=== PATIENT | female | born 1945 | race Caucasian/White ===

== ENCOUNTER → 2018-06-05 | Outpatient (CLI) | payer OTHER, MEDICAID ==
--- NOTE | 2018-06-05 12:02 | CT ---
EXAM DESCRIPTION: Abdomen/Pelvis w/wo Contrast CLINICAL HISTORY: 73 years Female, ABDOMIN PAIN COMPARISON: CT abdomen and pelvis dated 05/16/2011. TECHNIQUE: Contiguous 3 mm axial images were obtained from the lung bases to the level of the proximal femora before and after the administration of intravenous and oral contrast. Sagittal and coronal reconstructions were reviewed. FINDINGS: THORAX: The imaged lower thorax demonstrates no gross abnormality. LIVER: The liver demonstrates normal size and density with no intrahepatic biliary ductal dilatation or focal masses. GALLBLADDER: Not well distended limiting detailed evaluation. PANCREAS: Appears normal with no cystic or solid lesions. SPLEEN: Normal ADRENAL GLANDS: Normal with no nodules or masses. KIDNEYS: Nonobstructive calculi measuring up to 5 mm are noted in both kidneys. No hydronephrosis or perinephric fluid collections. Bilateral simple cysts are identified. No focal masses are identified. The visualized ureters appear grossly unremarkable. STOMACH: The stomach is not well-distended limiting detailed evaluation. SMALL BOWEL: The small bowel loops demonstrate variable degrees of distention with no abnormal dilatation or other signs to suggest bowel obstruction. LARGE BOWEL: Large amount of fecal material is noted throughout the colon, consistent with constipation. There appendix is not definitively visualized. No evidence of free intraperitoneal air or fluid. RETROPERITONEUM: Aneurysmal dilatation of the infrarenal abdominal aorta, just above the bifurcation measuring up to 3.5 cm in greatest dimension is noted. The inferior vena cava is normal in size and caliber. No abnormally enlarged retroperitoneal lymph nodes are identified. URINARY BLADDER:The urinary bladder is well-distended with no gross abnormality. The uterus and ovaries are surgically absent. ADDITIONAL FINDINGS: None. BONES: Moderate degenerative changes are identified in the visualized bones.No evidence of osteophytic or osteoblastic lesions. IMPRESSION: 1. Nonobstructive nephrolithiasis of both kidneys. 2. Constipation. 3. 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 Follow-up CT in one year is recommended to document stability. This exam was performed according to our departmental dose-optimization program, which includes automated exposure control, adjustment of the mA and/or kV according to patient size and/or use of iterative reconstruction technique. Electronically signed by: Yesi Noland MD 06/05/2018 12:01 PM CDT
== END ==
LOC: CT 08:30
PROVIDERS: ATTEND General Practice
DX: Z00.00 Encounter for general adult medical examination without abnormal findings (principal); N20.0 Calculus of kidney; K59.00 Constipation, unspecified; I71.4 Abdominal aortic aneurysm, without rupture; R10.9 Unspecified abdominal pain; E87.1 Hypo-osmolality and hyponatremia; E87.5 Hyperkalemia

== ENCOUNTER 2018-09-19 13:26 | Inpatient (IN) | payer OTHER, MEDICAID ==
[2018-09-19] MEDS ORDERED: ALBUTEROL SULFATE INHALATION 5 MG/ML 20 ML BTTL NEB ONE ×2 (13:44→19:55)
[2018-09-19] MEDS ORDERED: methylPREDNISolone SODIUM SUC 125 MG/2 ML VIAL ONE (13:45)
[2018-09-19] MEDS ORDERED: SODIUM CHLORIDE 0.9% 50 ML VIAL ONE ×2 (13:46→19:55)
[2018-09-19] MEDS ORDERED: methylPREDNISolone SODIUM SUC 125 MG/2 ML VIAL IV ONE (13:50)
[2018-09-19] MEDS ORDERED: SODIUM CHL 0.9% 50ML VIAL 3 ML, ALBUTEROL SULFATE NEBS 15 MG NEB ONE ×4 (13:50→19:42)
--- NOTE | 2018-09-19 13:55 | ED.PDOC ---
History of Present Illness - General Chief Complaint: Respiratory Problem Stated Complaint: Difficulty breathing, fever Time Seen by Provider: 09/19/18 13:40 Source: patient Exam Limitations: no limitations - History of Present Illness Comments: PT PRESENTED TO ED C/O COUGH AND SOB X 3-4 DAYS BUT MUCH WORSE TODAY. Cough Quality/Degree: sputum - UNKNOWN COLOR Improving Factors: nothing Worsening Factors: nothing Associated Symptoms: fever/chills Allergies/Adverse Reactions: Allergies Ketorolac Tromethamine [From Toradol] Allergy (Verified 09/19/18 14:14) Vomitting Also makes patient delusional Home Medications: Ambulatory Orders Aspirin 325 mg PO DAILY 09/19/18 Atorvastatin Calcium 40 mg PO BEDTIME 09/19/18 Calcium 1,200 mg PO BEDTIME 09/19/18 Calcium 600 mg PO DAILY 09/19/18 Levothyroxine Sodium 88 mcg PO DAILY 09/19/18 Loratadine [Claritin] 10 mg PO DAILY PRN 09/19/18 Melatonin 5 mg PO BEDTIME 09/19/18 Montelukast [Singulair] 10 mg PO DAILY 09/19/18 Nifedipine [Nifedipine ER] 60 mg PO DAILY 09/19/18 Propranolol HCl [Inderal LA] 120 mg PO DAILY 09/19/18 Review of Systems - Review of Systems Constitutional: States: fever. Denies: weakness EENTM: States: no symptoms reported Respiratory: States: cough, short of breath, wheezing Cardiology: Denies: chest pain, palpitations Gastrointestinal/Abdominal: Denies: nausea, vomiting Genitourinary: States: no symptoms reported Musculoskeletal: Denies: back pain, muscle pain, neck pain Skin: States: no symptoms reported Neurological: States: no symptoms reported Endocrine: States: no symptoms reported Hematologic/Lymphatic: States: no symptoms reported Past Medical History (General) - Patient Medical History Hx of COPD: Yes Hx Hypertension: Yes - Social History Hx Tobacco Use: Yes Family Medical History - Family History Mother Living Status: Hx Family Stroke: Yes Hx Cardiac Disease: Yes Hx Family Diabetes: Yes Physical Exam - Physical Exam General Appearance: Other - MOD TO SEVERE RESP DISTRESS Eye Exam: bilateral normal ENT Exam: normal ENT inspection, hearing grossly normal Neck: non-tender, full range of motion, supple Respiratory: respiratory distress - SATS 40% RA (HYPOXIC), other - MARKEDLY DIMINISHED THROUGHOUT, L>R LLL WORSE. PROLONGED EXP PHASE WITH POOR AIR EXCHANGE NAD DIFFUSE WHEEZING. Cardiovascular/Chest: no murmur, tachycardia Gastrointestinal/Abdominal: non tender, soft, no organomegaly Extremity: normal range of motion, non-tender, other - NAIL BEDS SLIGHTLY CYANOTIC Neurologic: alert, normal mood/affect Skin Exam: warm/dry, cyanosis Lymphatic: no adenopathy Progress - Progress Progress: 09/19/18 13:57 STARTED ON NON REBREATHER SATS RECOVERD TO 90'S STAT XRAY, LAB, CONTINUOUS NEB AND ABG. 09/19/18 14:33 DOING BETTER, SATS 92% ON CONTINUOUS NEB. STILL TIGHT WITH EXP WHEEZES. 09/19/18 1450 PT'S CONDITION REMAINS STABLE BUT GAURDED. D/W DALIA MERIDA, WILL ADMIT - EKG/XRAY/CT EKG: Sinus - RATE 97, LAD, , nonspecific ST T wave Chg - NAIP, NO OLD FOR COMPARISON XRAY: chest - LLL IFILTRATE Departure - Departure Clinical Impression: Hypoxemia Pneumonia Qualifiers: Pneumonia type: due to unspecified organism Laterality: left Lung location: lower lobe of lung Qualified Code(s): J18.1 - Lobar pneumonia, unspecified organism COPD (chronic obstructive pulmonary disease) Qualifiers: COPD type: COPD with acute lower respiratory infection Qualified Code(s): J44.0 - Chronic obstructive pulmonary disease with acute lower respiratory infection Hypertension Qualifiers: Hypertension type: essential hypertension Qualified Code(s): I10 - Essential (primary) hypertension ICD-10 Supporting Text: RESPIRATORY DISTRESS RESOLVED Time of Disposition: 15:29 Disposition: Admit Patient Condition: Fair Departure Forms: ED Discharge - Pt. Copy, Patient Portal Self Enrollment Home Medications: Ambulatory Orders Aspirin 325 mg PO DAILY 09/19/18 Atorvastatin Calcium 40 mg PO BEDTIME 09/19/18 Calcium 1,200 mg PO BEDTIME 09/19/18 Calcium 600 mg PO DAILY 09/19/18 Levothyroxine Sodium 88 mcg PO DAILY 09/19/18 Loratadine [Claritin] 10 mg PO DAILY PRN 09/19/18 Melatonin 5 mg PO BEDTIME 09/19/18 Montelukast [Singulair] 10 mg PO DAILY 09/19/18 Nifedipine [Nifedipine ER] 60 mg PO DAILY 09/19/18 Propranolol HCl [Inderal LA] 120 mg PO DAILY 09/19/18 Critical Care Note - Critical Care Note Total Time (mins): 45 Comments: EVENT: PNEUMONIA WITH HYPOXEMIA AND BRONCHOSPASM FINDINGS: LLL INFILTRATE, SATS 50%, RESP DISTRESS INTERVENTIONS: O2 SUPPORT, CONTINUOUS NEBULIZER X 2, ABX, STEROIDS SYSTEM AT RISK: RESP, CARDIO-VASCULAR Decision To Admit - Decistion To Admit Decision to Admit Reason: Admit from ER Decision to Admit Date: 09/19/18 Decision to Admit Time: 14:37
--- NOTE | 2018-09-19 14:17 | RAD ---
EXAM DESCRIPTION: Chest,1 View CLINICAL HISTORY: SOB, COUGH, FEVER COMPARISON: 19 May 2011 TECHNIQUE: AP portable chest FINDINGS: Bilateral interstitial lung disease is observed more pronounced on the left. The heart is within range of normal. No pleural fluid is seen. IMPRESSION: Interstitial infiltrates are observed more pronounced on the left. This may represent pneumonia Electronically signed by: Cj Bcaon MD 09/19/2018 2:15 PM MRI SPECIALIST
[2018-09-19] MEDS ORDERED: ALBUTEROL SULFATE NEB ONE ×2 (14:30)
[2018-09-19] MEDS ORDERED: SODIUM CHLORIDE 0.9% NEB ONE ×2 (14:30)
[2018-09-19] MEDS ORDERED: AZITHROMYCIN IV 500 MG in SODIUM CHLORIDE 0.9% 250ML 250 ML IVPB ONE (14:35)
[2018-09-19] MEDS ORDERED: cefTRIAXone SODIUM 1 GM in SODIUM CHL 0.9% 50ML MIN-BAG+ 50 ML IVPB ONE (14:35)
[2018-09-19] MEDS ORDERED: cefTRIAXone SODIUM 1 GM VIAL ONE (14:58)
[2018-09-19] MEDS ORDERED: AZITHROMYCIN IV 500 MG VIAL IVPB ONE (14:58)
[2018-09-19] MEDS ORDERED: SODIUM CHLORIDE 0.9% 250ML 250 ML ONE (14:58)
[2018-09-19] MEDS ORDERED: SODIUM CHL 0.9% 50ML MIN-BAG+ 50 ML IVPB ONE (14:58)
--- NOTE | 2018-09-19 15:45 | HP ---
SUPERVISING PHYSICIAN: Jeremy Nelson MD CHIEF COMPLAINT: Difficulty breathing, fever. HISTORY OF PRESENT ILLNESS: Ms. Henley is a 73 year-old female patient who reported to the Emergency Room today complaining of increasing cough and worsening shortness of breath. She notes that in the earlier part of the week she started having some shortness of breath and feeling bad but this progressively worsened over the last 3 days and today it was much worse where she was even short of breath just at rest. On presentation to the Emergency Room, the was noted to be severely hypoxic and in mild distress with initial SP02 showing to be in the 50s on room air with labored respirations at 44. She was noted to be febrile at 102.1, blood pressure showing hypertension at 179/114 with heart rate of 97. She was given continuous Duoneb treatments x2 and was able to increase to maintain 02 saturation of 90% with a Venti mask of 50%. Her laboratory studies showed she had a normal white count of 10,600 with a left shift, hemoglobin 13.6, hematocrit 40.6, platelet count 258,000. Blood gasses showed a respiratory acidosis with a pH of 7.3, PO2 of 78, PCO2 of 59, bicarb 27.9 with 02 saturation on Venti mask at 50% showing it to be 93%. Initial chemistries showed a low sodium of 132, BUN 27, creatinine1.0, glucose 158, lactic acid normal at 1.2, calcium 9.3, magnesium low at 1.6. Liver functions showed to be within normal limits. BNP elevated at 629 with troponin of 0.04. The patient was not complaining of any chest pain during the entire hospitalization in the Emergency Room prior to admission. She was noted to be a chronic smoker up to a pack a day since age of 20. Her chest x-ray per radiology interpretation showed interstitial infiltrates being more prominent on the left which is concerning for pneumonia. The patient was kept in the Emergency Room and aggressively managed until she was noted to be stable but guarded. After further discussion with Dr. Claudio, Emergency Room physician, felt the patient was stable enough to be admitted to the medical/surgical floor here for ongoing treatment of left lower lobe pneumonia and hypoxemia with some mild respiratory distress but no failure. She was able to maintain 02 saturations in the 90s on a continuous nebulizer with no obvious distress. She is now going to be admitted to the medical/surgical floor for further evaluation and treatment. PAST MEDICAL HISTORY: 1. Hypothyroidism. 2. Hypertension. 3. Chronic obstructive pulmonary disease. 4. History of transient ischemic attacks. 5. Left patellar fracture in 2018. PAST SURGICAL HISTORY: 1. Thyroidectomy. 2. Multiple cervical spine surgeries. 3. Appendectomy. 4. Partial colectomy for concerns for colon cancer requiring a colostomy which was reversed. 5. Tonsillectomy and adenoidectomy. CURRENT MEDICATIONS: 1. Calcium 1200 mg t.i.d. 2. Nifedipine extended release 30 mg daily. 3. Melatonin 5 mg at bedtime. 4. Aspirin 325 mg daily. 5. Atorvastatin 40 mg daily. 6. Singulair 10 mg daily. 7. Levothyroxine 88 mcg daily. 8. Inderal 120 mg daily. ALLERGIES: TORADOL FAMILY HISTORY: Father at age 65 from complications of chronic obstructive pulmonary disease. Mother at 91 years of age. She has one brother that is healthy. She has two children, a son as a child from complications of spina bifida. She has one daughter who has blood pressure problems and another son that she does not keep up with. SOCIAL HISTORY: The patient lives in [place], [place]. Her primary care physician is Dr. Quinn. She is a retired grocery store worked. She has never drank alcohol. She does smoke anywhere from half pack to a pack a day and has since age 20. She denies any illicit drug use. REVIEW OF SYSTEMS: CONSTITUTIONAL: Positive for chills, fevers and general malaise. . HEENT: Negative for nasal congestion, earache or sore throat. RESPIRATORY: Positive for increasing cough with purulent sputum, increasing shortness of breath and extensive wheezing. . CARDIOVASCULAR: Negative for chest pain. palpitations or syncopal episodes. GASTROINTESTINAL: Negative for nausea, vomiting, diarrhea or constipation, GENITOURINARY: Negative for dysuria, hematuria, polyuria or other urinary symptoms. MUSCULOSKELETAL: Negative for back pain, muscle pains or neck pain. NEUROLOGICAL: Negative for ataxia, seizures, syncopal episodes. PHYSICAL EXAMINATION: VITAL SIGNS: Temperature on admission was febrile at 102.1, heart rate 97, blood pressure initially 179/114. Respirations 40 that were labored with 02 saturations on room air at 50%. After continuous nebulizer treatments x2 she was able to maintain 02 saturation on the Venti at 50% showing 91 to 92% on SP02. Blood pressure stabilized at 132/66 after she was given multiple breathing treatments. Weight 53.4 kg. GENERAL: At time of admission to the medical/surgical floor, the patient was resting comfortably and appeared to be in no acute distress with Venti mask in place. HEENT: Tympanic membranes clear bilaterally. Oropharynx pink and moist without any lesions. NECK: Supple, non-tender ,full range of motion. No jugular venous distention. . CHEST: Breath sounds are markedly decreased throughout, more so on the left than the right and more prominent in the left lower lobe, posterior aspect with a prolonged expiratory phase resulting in diffuse wheezing showing slow improvement continuous nebulizer treatments. CARDIOVASCULAR: Regular rate and rhythm without appreciable murmurs, rubs, or gallops. ABDOMEN: Soft, nontender, positive bowel sounds. EXTREMITIES: No cyanosis, clubbing, or edema. NEUROLOGIC: Cranial nerves II through XII are grossly intact. Facial features are symmetrical. She is alert and oriented x3. Extraocular movements within normal limits. SKIN: Pale, warm and dry. No lesions or rashes noted. LYMPHATIC SYSTEM: Without any notable lymphadenopathy. LABORATORY: White count 10,600 with hemoglobin 13.6, hematocrit 40.6, platelet count 158,000, differential did show a left shift. Her blood gas analysis showed respiratory acidosis with a pH of 7.3, PCO2 of 59, PO2 of 78, bicarb 27.9 with 02 saturation on Venti at 50% at 93% on SPO2. Oxyhemoglobin 91 with carboxyhemoglobin of 1.2%. Chemistries showed a sodium initially of 132, potassium 3.8, BUN 27, creatinine 1,glucose 158, lactic normal at 1.2, magnesium 1.6. Liver functions all within normal limits. BNP elevated at 629 with troponin of 0.04. MICROBIOLOGY: Influenza swab both negative for A and B. Sputum culture pending. Blood cultures pending. RADIOLOGY: Chest x-ray, single view in the Emergency Room per radiology interpretation showed interstitial infiltrates more pronounced on the left which could represent pneumonia. ASSESSMENT: 1. Acute exacerbation of chronic obstructive pulmonary disease with left lower lobe pneumonia. 2. Respiratory acidosis secondary to moderate acute respiratory distress requiring continuous nebs and high flow oxygen. 3. Chronic nicotine addiction in a chronic smoker. 4. Febrile illness probably due to developing pneumonia. 5. Hypoxemia, hypoxia as noted on admission requiring aggressive management. 6. Electrolyte imbalance to include hyponatremia probably due to underlying developing pneumonia with low magnesium. 8. Elevated BNP without any formal history of congestive heart failure probably due to ongoing respiratory failure. 9. History of hypothyroidism on supplementation. 10. History of hypertension with hypertensive urgency on admission due to acute respiratory distress. 11. History of previous transient ischemic attacks. PLAN: The patient is going to be admitted to the medical/surgical floor for ongoing treatment of community acquired pneumonia. She will be started on antibiotics including Rocephin and azithromycin. She will be on aggressive pulmonary hygiene, toiletry and will initially try to use the Venti mask and taper to nasal cannula, however, if the patient shows to be clinically worsening, certainly we will go to noninvasive to include BiPAP. Will utilize continuous albuterol nebulizer treatments until she is showing to be stable and then we will go to q.i.d. Duoneb treatments. Will await sputum cultures for assistance to further target antibiotic therapy. She will have DVT prophylaxis with Lovenox. Will plan to repeat labs and x-ray in the morning. Anticipate length of stay to be probably 2 to 3 days. Until she can transition to outpatient management, we will continue to monitor and treat as needed. #[id number] [facility]
[2018-09-19] MEDS ORDERED: ONDANSETRON INJ 4 MG/2 ML VIAL IV PRN (18:33)
[2018-09-19] MEDS ORDERED: ALBUTEROL SULFATE 2.5 MG/3 ML VIAL NEB PRN (18:33)
[2018-09-19] MEDS ORDERED: NON-FORMULARY MEDICATION 1 EA MIS (Melatonin [Melatonin] 5 MG) PO PRN (18:40)
[2018-09-19] MEDS: IV SET AND CAP CHANGE INJ INJ SCH (19:00)
[2018-09-19] MEDS: KCL 20 MEQ/NS 1,000 ML IVS PRN (19:00)
[2018-09-19] MEDS ORDERED: ATORVASTATIN 20 MG TAB PO ONE ×2 (19:22→21:00)
[2018-09-19] MEDS ORDERED: MELATONIN 3 MG TAB PO PRN (19:36)
[2018-09-19] MEDS ORDERED: MAGNESIUM SULFATE PREMIX 2GM 2 GM in PREMIX BAG 1 BAG IVPB ONE (19:42)
[2018-09-19] MEDS ORDERED: CALCIUM CARBONATE (ANTACID) 500 MG CHEWABLE TAB PO ONE (19:49)
[2018-09-19] MEDS: IPRATROPIUM/ALBUTEROL 3 ML VIAL INH SCH (19:50)
[2018-09-19] MEDS ORDERED: MAGNESIUM SULFATE PREMIX 2GM 50 ML IVPB ONE (19:55)
[2018-09-19] MEDS ORDERED: CALCIUM 1000 MG PO SCH (21:00)
[2018-09-19] MEDS: ENOXAPARIN SODIUM 40 MG/0.4 ML SYG SUBCU SCH (21:00)
[2018-09-19] MEDS: SODIUM CHLORIDE 0.9% (FLUSH) 10 ML SYG IV PRN (21:00)
[2018-09-19] MEDS ORDERED: NON-FORMULARY MEDICATION 1 EA MIS (Atorvastatin Calcium [Atorvastatin Calcium] 40 MG) PO SCH (21:00)
[2018-09-19] MEDS ORDERED: CALCIUM 1200 MG PO SCH (21:00)
[2018-09-19] MEDS: methylPREDNISolone SODIUM SUC 125 MG/2 ML VIAL IV SCH (21:00)
[2018-09-20] MEDS: methylPREDNISolone SODIUM SUC 125 MG/2 ML VIAL IV SCH ×4 (00:38→17:35)
[2018-09-20] MEDS: SODIUM CHLORIDE 0.9% (FLUSH) 10 ML SYG IV PRN ×3 (00:38→06:01)
[2018-09-20] MEDS: PANTOPRAZOLE SODIUM IV 40 MG VIAL IV SCH (06:00)
[2018-09-20] MEDS: KCL 20 MEQ/NS 1,000 ML IVS PRN (08:09)
--- NOTE | 2018-09-20 08:11 | RAD ---
PROCEDURE: XR CHEST 1 VIEW HISTORY: Pneumonia COMPARISON: 09/19/2018 TECHNIQUE: Single projection of the chest was done. FINDINGS: Chronic prominence of the interstitium in the bilateral lung johnson is again noted. There is presence of mild bibasilar infiltrate/atelectasis . There are no pneumothoraces or pleural effusions. The cardiomediastinal silhouette is stable. IMPRESSION: There is presence of mild bibasilar infiltrate/atelectasis, not significantly changed . Electronically signed by: Torsten Zuñiga MD 09/20/2018 8:10 AM [facility] Workstation: [id number]
[2018-09-20] MEDS ORDERED: IPRATROPIUM/ALBUTEROL 3 ML VIAL NEB ONE (08:17)
[2018-09-20] MEDS ORDERED: NIFEdipine XL 30 MG TAB PO SCH (09:00)
[2018-09-20] MEDS ORDERED: PROPRANOLOL HCL 120 MG PO SCH (09:00)
[2018-09-20] MEDS ORDERED: CALCIUM CARBONATE-VITAMIN D 500 MG TAB PO SCH ×2 (09:00→09:30)
[2018-09-20] MEDS ORDERED: SODIUM CHL 0.9% 50ML MIN-BAG+ 50 ML IVPB ONE (09:07)
[2018-09-20] MEDS ORDERED: cefTRIAXone SODIUM 1 GM VIAL ONE (09:07)
[2018-09-20] MEDS: IPRATROPIUM/ALBUTEROL 3 ML VIAL NEB SCH ×4 (09:19→20:18)
[2018-09-20] MEDS: cefTRIAXone SODIUM 1 GM in SODIUM CHL 0.9% 50ML MIN-BAG+ 50 ML IVPB SCH (09:23)
[2018-09-20] MEDS: LEVOTHYROXINE SODIUM 0.088 MG TAB PO SCH (09:23)
[2018-09-20] MEDS: MONTELUKAST 10 MG TAB PO SCH (09:23)
[2018-09-20] MEDS: ASPIRIN TABLET 325 MG TAB PO SCH (09:23)
[2018-09-20] MEDS: IPRATROPIUM/ALBUTEROL 3 ML VIAL INH SCH (09:34)
[2018-09-20] MEDS ORDERED: NIFEdipine XL 30 MG TAB PO ONE (11:36)
[2018-09-20] MEDS ORDERED: SODIUM CHLORIDE 0.9% 250ML 250 ML ONE (17:03)
[2018-09-20] MEDS ORDERED: SODIUM CHL 0.9% 50ML VIAL 12 ML, ALBUTEROL SULFATE NEBS 7.5 MG NEB ONE ×2 (17:03)
[2018-09-20] MEDS ORDERED: AZITHROMYCIN IV 500 MG VIAL IVPB ONE (17:04)
[2018-09-20] MEDS: BUDESONIDE NEBS 0.5 MG/2 ML VIAL NEB SCH ×2 (17:21→20:17)
[2018-09-20] MEDS: NICOTINE PATCH 14 MG TD SCH (17:31)
[2018-09-20] MEDS: AZITHROMYCIN IV 500 MG in SODIUM CHLORIDE 0.9% 250ML 250 ML IVPB SCH (17:31)
[2018-09-20] MEDS: CALCIUM CARBONATE-VITAMIN D 500 MG TAB PO SCH ×2 (17:32→20:38)
[2018-09-20] MEDS ORDERED: RACEPINEPHRINE 2.25% 0.5 ML UD NEB ONE (17:54)
[2018-09-20] MEDS: SODIUM CHLORIDE 0.45% 1000ML 1,000 ML IVS PRN (18:49)
--- NOTE | 2018-09-20 19:26 | RAD ---
EXAM DESCRIPTION: AP view of the chest CLINICAL HISTORY:73 years Female, sob Comparison: September 20, 2018 7:26 AM FINDINGS: Diffuse prominence of the pulmonary interstitium is unchanged likely related to chronic lung disease. Increased opacity in the left lung base now silhouettes the hemidiaphragm. No definite pleural abnormalities. Cardiac silhouette is stable. IMPRESSION: Increased alveolar opacities in the left lung base. Electronically signed by: Sridhar Hernandez DO 09/20/2018 7:25 PM [facility]
[2018-09-20] MEDS ORDERED: FUROSEMIDE INJ 40 MG/4 ML VIAL IV ONE (19:32)
[2018-09-20] MEDS: ENOXAPARIN SODIUM 40 MG/0.4 ML SYG SUBCU SCH (20:37)
[2018-09-20] MEDS: ATORVASTATIN 20 MG TAB PO SCH (20:37)
--- NOTE | 2018-09-20 22:39 | PN ---
DATE: 09/20/18 SUPERVISING PHYSICIAN: Jeremy Nelson M.D. SUBJECTIVE: This morning the patient felt that she was improved a little bit. She was showing to be in much less distress and comfortable, but continues to require high flow oxygen with a Venti mask at 50% to maintain minimal O2 saturations. She has had no chest pains. She has remained afebrile. OBJECTIVE: VITAL SIGNS: Temperature 97.9, pulse 76, blood pressure 151/72, respirations 20, satting 95% on a Venti mask at 10 liters for 50% FiO2. I's and O's show a positive balance of 147 with 647 in, 500 out. Weight is 54.3 kg. GENERAL: The patient is much more alert today. She is actually very verbal and is verbalizing she would like to go home. CHEST: Lung sounds continue to be diminished throughout although improved certainly from admission with continued expiratory wheezes and a fairly long expiratory phase with her showing to be hypoxic on room air continued and remaining on 50% FiO2 via Venti mask with slow titration. HEART: Regular rate and rhythm. ABDOMEN: Soft, non-tender. Positive bowel sounds. EXTREMITIES: Without any clubbing, cyanosis or edema. NEUROLOGIC: She is alert and oriented times three. LABORATORY: White count 15,700, hemoglobin 12.5, hematocrit 38.2, platelet count 205,000. Differential shows a continued left shift but no bands. Chemistries show normal electrolytes with potassium 4.7, BUN 30, creatinine 0.87. Magnesium now is up to 2.3, calcium at 9.0. MICROBIOLOGY: Sputum culture is pending. Blood cultures remain negative at 24 hours. RADIOLOGY: Repeat chest x-ray this morning per radiology interpretation shows the presence of mild basilar infiltrate/atelectasis not significantly changed. ASSESSMENT: 1. Acute exacerbation of chronic obstructive pulmonary disease with a developing left lower lobe pneumonia probably community acquired requiring aggressive management with high flow O2 resulting in dependency on FiO2 at 50% with slow titration and the patient showing to be continuing short of breath on room air. 2. Respiratory acidosis partially compensated due to moderate acute respiratory failure with increased CO2 levels but improving with continuous nebs and high flow oxygen. 3. Chronic nicotine addiction in a chronic smoker. Again encouraged to continue with smoking cessation. 4. Febrile illness probably due to developing pneumonia. 5. Hypoxemia and hypoxia with hypercapnia noted on admission due to #1. 6. Electrolyte imbalance to include hyponatremia and hypomagnesemia, resolving back to baseline with fluid replacement. 7. History of hypothyroidism on supplementation. 8. History of hypertension with hypertensive urgency initially on admission probably due to acute respiratory distress and the patient not able to take home medications prior to admission. 10. History of previous transient ischemic attacks with no reported residual effects. PLAN: The patient continues to require aggressive management. We continue with DuoNeb treatments and continuous DuoNeb treatments as needed. Consideration for BiPAP should the patient show deterioration, although I am not sure she would tolerate the use of it. She continues on a Venti mask and aggressive pulmonary hygiene. Will restart her home medications as updated list was verified. Will go ahead and continue with IV fluids and monitor I's and O's closely. Will plan to repeat labs and x-rays in the morning. Anticipate at least another 1 to 2 days, possibly more of hospitalization need as the patient is fairly advanced in age with advanced COPD and showing slow clinical improvement. Her condition certainly is guarded but she seems to be stable at this point. Until we can transition her to outpatient management will continue to monitor and treat as needed. #[id number] [facility]
[2018-09-21] MEDS: methylPREDNISolone SODIUM SUC 125 MG/2 ML VIAL IV SCH ×4 (00:03→18:35)
[2018-09-21] MEDS: SODIUM CHLORIDE 0.45% 1000ML 1,000 ML IVS PRN ×2 (05:18→22:11)
[2018-09-21] MEDS ORDERED: SODIUM CHL 0.9% 50ML MIN-BAG+ 50 ML IVPB ONE (05:25)
[2018-09-21] MEDS ORDERED: cefTRIAXone SODIUM 1 GM VIAL ONE (05:26)
[2018-09-21] MEDS: LEVOTHYROXINE SODIUM 0.088 MG TAB PO SCH (06:08)
[2018-09-21] MEDS: PANTOPRAZOLE SODIUM IV 40 MG VIAL IV SCH (06:08)
[2018-09-21] MEDS ORDERED: BUDESONIDE NEBS 0.25 MG/2 ML INH ONE (07:45)
[2018-09-21] MEDS: IPRATROPIUM/ALBUTEROL 3 ML VIAL NEB SCH ×4 (08:06→19:50)
[2018-09-21] MEDS: BUDESONIDE NEBS 0.5 MG/2 ML VIAL NEB SCH ×2 (08:06→19:50)
[2018-09-21] MEDS: ASPIRIN TABLET 325 MG TAB PO SCH (08:44)
[2018-09-21] MEDS: NICOTINE PATCH 14 MG TD SCH (08:45)
[2018-09-21] MEDS: NIFEDIPINE 60 MG PO SCH (08:45)
[2018-09-21] MEDS: CALCIUM CARBONATE-VITAMIN D 500 MG TAB PO SCH ×3 (08:45→20:57)
[2018-09-21] MEDS: MONTELUKAST 10 MG TAB PO SCH (08:45)
[2018-09-21] MEDS: cefTRIAXone SODIUM 1 GM in SODIUM CHL 0.9% 50ML MIN-BAG+ 50 ML IVPB SCH (08:53)
[2018-09-21] MEDS ORDERED: FUROSEMIDE INJ 40 MG/4 ML VIAL IV ONE (10:41)
[2018-09-21] MEDS ORDERED: SODIUM CHLORIDE 0.9% 250ML 250 ML ONE (16:26)
[2018-09-21] MEDS ORDERED: AZITHROMYCIN IV 500 MG VIAL IVPB ONE (16:27)
[2018-09-21] MEDS: AZITHROMYCIN IV 500 MG in SODIUM CHLORIDE 0.9% 250ML 250 ML IVPB SCH (16:32)
[2018-09-21] MEDS: ATORVASTATIN 20 MG TAB PO SCH (20:53)
[2018-09-21] MEDS: ENOXAPARIN SODIUM 40 MG/0.4 ML SYG SUBCU SCH (20:56)
--- NOTE | 2018-09-21 21:06 | PN ---
DATE: 09/21/18 SUPERVISING PHYSICIAN: Jeremy Nelson M.D. SUBJECTIVE: The patient is still very fragile in regards to her COPD exacerbation. She had been doing fine yesterday and around 6:00 the nurses called me that the patient had acutely deteriorated and was in some mild respiratory distress, possibly verging on failure. After examining the patient and laboratory studies that showed she did have respiratory acidosis and was once again with prominent wheezing throughout, utilized continuous DuoNeb treatment as well as racemic Epinephrine and then had to place the patient on BiPAP which she tolerated. After discussion with family and nurses, apparently the patient had gone to the bathroom without her oxygen and had gotten short of breath significantly to where she was panicked and it took a great deal of effort to get her back to levels of her oxygen that were where she was prior to the event. She has required some Ativan because she got really upset and crying and emotional last night as well as in efforts to help her tolerate the BiPAP. Today, she seems to tolerate the BiPAP. She is resting comfortably. She had no more episodes throughout the night. She was showing, after all of the events that occurred last night, one of her labs, a BNP showed to be elevated therefore she was given some Lasix which she did respond well to. The patient was restarted on her medication yesterday from home that was Propranolol which possibly could have been what caused her to have some exacerbation yesterday afternoon. Given that, will plan to watch her vital signs closely and more likely hold that until she improves. OBJECTIVE: VITAL SIGNS: Temperature 97.4, pulse 76, blood pressure 188/65, respirations show 18 with O2 saturations of 96% on BiPAP with settings at 12/7 with FiO2 of 60%. Her tidal volumes are ranging in the mid 400s. I's and O's show a negative balance of 796 with 1554 in, 2350 out. GENERAL: The patient is resting this morning with BiPAP in place. She is arousable and much calmer than last night. CHEST: Lung sounds have improved from yesterday but she remains diminished throughout, but not as tight-sounding and there is no obvious rhonchi or wheezing noted today. ABDOMEN: Soft, non-tender. Positive bowel sounds. EXTREMITIES: Without any clubbing, cyanosis or edema. NEUROLOGIC: She is drowsy but alert. LABORATORY: Last night blood gas analysis showed a respiratory acidosis with a pH of 7.17 with pCO2 of 77, pO2 of 78, bicarb 26.8 with O2 saturation 93 on 60% FiO2 on BiPAP and base excess was -3. CBC this morning showed white count now at 10,500, hemoglobin 11.6, hematocrit 34.5, platelet count 162,000. Differential continues to show a left shift but no bands. Chemistries last night were fairly unremarkable. Carbon dioxide was actually at 28, this morning the electrolytes are all within normal limits with CO2 of 29, BUN 24, creatinine 0.91. BNP is 1240, calcium 8.3. MICROBIOLOGY: Sputum culture pending. Flu A and B was negative. Blood culture remained negative at 48 hours. RADIOLOGY: Chest x-ray last night after acute exacerbation showed increase of her opacities in the left lung base. ASSESSMENT: 1. Acute exacerbation of chronic obstructive pulmonary disease with left lower lobe pneumonia likely community acquired requiring continued aggressive management with BiPAP with settings currently at 60% and pressures of 12/7 with the patient showing tidal volumes to be around 450. 2. Respiratory acidosis with acute exacerbation probably due to reactive airway possibly exacerbated by Propranolol requiring aggressive management with racemic Epinephrine and continuous DuoNeb showing response to treatment and showing to be more stable this morning. 3. Chronic nicotine addiction in a chronic smoker. Continues to be encouraged to stop smoking. 4. Febrile illness due to #1 now showing to be afebrile for 48 hours. 5. Persistent hypoxemia and hypercapnia secondary to #1 and with acute exacerbation in the last 24 hours requiring the initiation of BiPAP. 6. Electrolyte imbalance now resolved and back to baseline levels. 7. History of hypothyroidism on supplementation. 8. History of hypertension with some hypertensive urgency noted on admission probably due to acute respiratory distress with the patient's blood sugars showing to be more controlled. 10. History of previous transient ischemic attacks with no reported residual effects. PLAN: The patient is very fragile obviously and is making slow progress given the fact that we had to start using BiPAP last night. She did have an acute episode but was managed to turn around with racemic Epinephrine and continuous DuoNeb. She will be on BiPAP as needed and hopefully be able to titrate down slowly as she becomes more stable. Will need to use some Ativan as she sometimes is intolerant to the BiPAP mask. I have added Budesonide 1 mg b.i.d. to her bronchial regimen. I gave her Lasix last night. Will give her an additional dose today. She has had a Tran in place due to the critical status of her care. Will anticipate hopefully being able to remove that tomorrow if she improves. Certainly given the fact that she is in guarded condition and showing to be fairly unstable at times, and the threshold for intubation is certainly very low, hopefully she will be able to manage on BiPAP for the next 24 hours and avoid intubation and transfer. If she does show acute deterioration, I have discussed with the family that more likely she will need to be intubated as she is showing failure to respond to treatment at that point. But at this point she seems to be improving but very slowly. Will continue with the current plan of care. Will follow her labs and her x-rays closely and again attempt to titrate her off the BiPAP onto room air, or at least titrate down to where she can tolerate a nasal cannula. Given that she seemed to have a reactive occurrence yesterday which I feel is probably due to acute anxiety and acute hypoxia from the patient taking her oxygen off, there probably was some element of the Propranolol that was causing some difficulty in returning the patient back to her status prior to the event, therefore will plan to hold the Propranolol and closely monitor her vital signs and reinstate this as she clinically improves. Until she can transition to outpatient management will continue to monitor and treat as needed. #[id number] MTDD
[2018-09-22] MEDS: methylPREDNISolone SODIUM SUC 125 MG/2 ML VIAL IV SCH ×2 (00:20→06:27)
[2018-09-22] MEDS: PANTOPRAZOLE SODIUM IV 40 MG VIAL IV SCH (06:27)
[2018-09-22] MEDS: LEVOTHYROXINE SODIUM 0.088 MG TAB PO SCH (06:27)
[2018-09-22] MEDS ORDERED: SODIUM CHL 0.9% 50ML MIN-BAG+ 50 ML IVPB ONE (07:34)
[2018-09-22] MEDS ORDERED: cefTRIAXone SODIUM 1 GM VIAL ONE (07:35)
--- NOTE | 2018-09-22 07:48 | RAD ---
EXAM DESCRIPTION: Chest,1 View CLINICAL HISTORY: copd COMPARISON: September 20, 2018 IMPRESSION: Single AP portable upright view of the chest shows cardiac silhouette and pulmonary vasculature to be within normal limits. Lungs are normally aerated and clear. Interval resolution of the increased interstitial markings seen on previous exam. No obvious pleural effusion or pneumothorax is seen. Electronically signed by: Car Walker MD 09/22/2018 7:47 AM [facility] [employer]
[2018-09-22] MEDS: ASPIRIN TABLET 325 MG TAB PO SCH (08:36)
[2018-09-22] MEDS: NIFEDIPINE 60 MG PO SCH (08:36)
[2018-09-22] MEDS: MONTELUKAST 10 MG TAB PO SCH (08:37)
[2018-09-22] MEDS: CALCIUM CARBONATE-VITAMIN D 500 MG TAB PO SCH ×3 (08:37→20:34)
[2018-09-22] MEDS: NICOTINE PATCH 14 MG TD SCH (08:37)
[2018-09-22] MEDS: cefTRIAXone SODIUM 1 GM in SODIUM CHL 0.9% 50ML MIN-BAG+ 50 ML IVPB SCH (08:40)
[2018-09-22] MEDS: IPRATROPIUM/ALBUTEROL 3 ML VIAL NEB SCH ×4 (09:33→20:40)
[2018-09-22] MEDS: BUDESONIDE NEBS 0.5 MG/2 ML VIAL NEB SCH ×2 (09:33→20:40)
[2018-09-22] MEDS: SODIUM CHLORIDE 0.45% 1000ML 1,000 ML IVS PRN (11:18)
--- NOTE | 2018-09-22 14:38 | PN ---
DATE: 09/22/18 SUPERVISING PHYSICIAN: Jeremy Nelson M.D. SUBJECTIVE: The patient is lying her bed, she is asleep, she awakens easily. She has no complaints of nausea, vomiting, diarrhea or constipation. She does say she is short of breath with some activity but is improved. She would like to get up in her chair if possible and I explained it would depend how she did with her oxygen but I would consult physical therapy and try to get her up as much as possible. OBJECTIVE: VITAL SIGNS: Temperature - she is afebrile. Heart rate 79, blood pressure 176/73, respiratory rate has been as high as 32, it is now 24. 02 saturation is 94% on 2 liters nasal cannula. RESPIRATORY: Diminished breath sounds throughout. There is no rhonchi or wheezing. She is slightly tachypneic; and she does have to speak in short phrases due to her shortness of breath. CARDIAC: Regular rate and rhythm. ABDOMEN: Soft, non-tender, non-distended. Bowel sounds are positive. NEUROLOGIC: She is drowsy but awakens easily. She is alert to person and placed. LABORATORY: Preliminary blood cultures show no growth after 48 hours.. Chest x- ray, single AP portable upright view of the chest shows cardiac silhouette and pulmonary vascularity to be within normal limits. Interval resolution of increased interstitial markings seen on previous exam. All other labs and films have been reviewed via the EMR. ASSESSMENT: 1. Acute exacerbation of chronic obstructive pulmonary disease with left lower lobe pneumonia likely community acquired requiring continued aggressive management with BiPAP with settings currently at 60% and pressures of 12/7 with the patient showing tidal volumes to be around 450. 2. Respiratory acidosis with acute exacerbation probably due to reactive airway possibly exacerbated by Propranolol requiring aggressive management with racemic Epinephrine and continuous DuoNeb showing response to treatment and showing to be more stable this morning. 3. Chronic nicotine addiction in a chronic smoker. Continues to be encouraged to stop smoking. 4. Afebrile for 72 hours. . 5. Persistent hypoxemia and hypercapnia secondary to #1 and with acute exacerbation in the last 24 hours requiring the initiation of BiPAP. 6. Electrolyte imbalance now resolved and back to baseline levels. 7. History of hypothyroidism on supplementation. 8. History of hypertension with some hypertensive urgency noted on admission probably due to acute respiratory distress with the patient's blood sugars showing to be more controlled. 10. History of previous transient ischemic attacks with no reported residual effects. PLAN: We will continue present supportive care. She is very slowly getting better clinically. She continues to have to use BiPAP at night but has had no acute issues while on the BiPAP. I will have physical therapy evaluate her if she can tolerate getting up. I will also have the nurses get her up in a chair several times per day if she can tolerate it. At this point, I will not do bladder training or discontinue her Tran catheter at this time as she is still quite short of breath and becomes tachypneic easily. I have ordered some routine lab for in the morning but her x-ray is better at this time and will watch the patient responses clinically in the next few days. She still becomes acutely hypoxic without any oxygen so we will have to watch that closely and we will continue her present pulmonary hygiene. Continue to monitor her closely and follow as needed. Dr. Nelson is the collaborating physician available for consultation #[id number] [facility]
[2018-09-22] MEDS ORDERED: AZITHROMYCIN IV 500 MG VIAL IVPB ONE (15:39)
[2018-09-22] MEDS ORDERED: SODIUM CHLORIDE 0.9% 250ML 250 ML ONE (15:39)
[2018-09-22] MEDS: AZITHROMYCIN IV 500 MG in SODIUM CHLORIDE 0.9% 250ML 250 ML IVPB SCH (16:35)
[2018-09-22] MEDS: ATORVASTATIN 20 MG TAB PO SCH (20:34)
[2018-09-22] MEDS: ENOXAPARIN SODIUM 40 MG/0.4 ML SYG SUBCU SCH (20:35)
[2018-09-23] MEDS: SODIUM CHLORIDE 0.45% 1000ML 1,000 ML IVS PRN (01:26)
[2018-09-23] MEDS: IV SET AND CAP CHANGE INJ INJ SCH (01:26)
[2018-09-23] MEDS: PANTOPRAZOLE SODIUM IV 40 MG VIAL IV SCH (06:09)
[2018-09-23] MEDS: LEVOTHYROXINE SODIUM 0.088 MG TAB PO SCH (06:09)
[2018-09-23] MEDS ORDERED: SODIUM CHL 0.9% 50ML MIN-BAG+ 50 ML IVPB ONE (07:48)
[2018-09-23] MEDS ORDERED: cefTRIAXone SODIUM 1 GM VIAL ONE (07:49)
[2018-09-23] MEDS: BUDESONIDE NEBS 0.5 MG/2 ML VIAL NEB SCH ×2 (08:31→20:48)
[2018-09-23] MEDS: IPRATROPIUM/ALBUTEROL 3 ML VIAL NEB SCH ×4 (08:31→20:48)
[2018-09-23] MEDS ORDERED: KCL 40 MEQ/WATER FOR INJ 100ML 40 MEQ in PREMIX BAG 1 BAG IVPB ONE (08:58)
[2018-09-23] MEDS ORDERED: POTASSIUM CHLORIDE 20 MEQ TAB PO ONE (09:01)
[2018-09-23] MEDS ORDERED: KCL 40 MEQ/WATER FOR INJ 100ML 100 ML IVPB ONE (09:20)
[2018-09-23] MEDS ORDERED: MAGNESIUM SULFATE PREMIX 2GM 50 ML IVPB ONE (09:21)
[2018-09-23] MEDS ORDERED: MAGNESIUM SULFATE PREMIX 2GM 2 GM in PREMIX BAG 1 BAG IVPB ONE (09:23)
[2018-09-23] MEDS: CALCIUM CARBONATE-VITAMIN D 500 MG TAB PO SCH ×3 (09:32→20:47)
[2018-09-23] MEDS: ASPIRIN TABLET 325 MG TAB PO SCH (09:32)
[2018-09-23] MEDS: MONTELUKAST 10 MG TAB PO SCH (09:32)
[2018-09-23] MEDS: NICOTINE PATCH 14 MG TD SCH (09:34)
[2018-09-23] MEDS: NIFEDIPINE 60 MG PO SCH (09:36)
[2018-09-23] MEDS: cefTRIAXone SODIUM 1 GM in SODIUM CHL 0.9% 50ML MIN-BAG+ 50 ML IVPB SCH (10:28)
[2018-09-23] MEDS ORDERED: KCL 20MEQ/0.45% NS 1,000 ML IVS PRN (11:28)
[2018-09-23] MEDS ORDERED: ALPRAZolam 0.5 MG TAB ONE (11:38)
[2018-09-23] MEDS ORDERED: guaiFENesin ER TAB 600 MG TAB ONE (11:38)
[2018-09-23] MEDS: ALPRAZolam 0.5 MG TAB PO PRN ×2 (11:39→20:21)
[2018-09-23] MEDS: guaiFENesin ER TAB 600 MG TAB PO SCH ×2 (11:40→20:47)
--- NOTE | 2018-09-23 12:13 | PN ---
DATE: 09/23/18 SUPERVISING PHYSICIAN: Jeremy Nelson M.D. SUBJECTIVE: The patient is lying her bed, she is crying. She has requested to go home. Her family is at the bedside. We discussed at length that she was unable to go home due to oxygenation and that her 02 saturation dropped into the low 80s with even getting to the side of the bed she would have physical therapy help her with her strengthening and conditioning. She does not have oxygen at home nor does she have home health. She usually lives in [place] but has been living with her granddaughter since she has been so sick. I explained to her that it may take several days for her to get to a point where she can be discharged, she is too weak and her oxygen saturations are so unstable at this point. She also complained that she had a lot of anxiety due to this and I told her that I would increase her antianxiety medication. The patient was much calmer after we talked, especially with encouragement from her granddaughter. OBJECTIVE: VITAL SIGNS: Temperature 98. Heart rate 71, blood pressure 164/79, respiratory rate 22. 02 saturation is 92% on high flow oxygen. .It is reported that getting up to the side of the bed she dropped into the low 80s. While on high flow she still uses BiPAP at night. RESPIRATORY: Diminished breath sounds throughout. There is some scattered rhonchi and a few expiratory wheezes but the wheezing is very mild. CARDIAC: Regular rate and rhythm. ABDOMEN: Soft, non-tender, non-distended. Bowel sounds are positive. NEUROLOGIC: She is awake, alert, and oriented x3. .She is quite tearful at this time. LABORATORY: WBC 12,500 with hemoglobin 12.2, hematocrit 36.2. Electrolytes show a sodium of 140, potassium 2.6, chloride 99, carbon dioxide 35, calcium 7.5, magnesium 1.5. Glucose 93, BUN 13, creatinine 0.70. Her preliminary blood cultures show no growth after 3 days. All other labs and films have been reviewed via the EMR> ASSESSMENT: 1. Acute exacerbation of chronic obstructive pulmonary disease with left lower lobe pneumonia likely community acquired requiring continued aggressive management with BiPAP at night and high flow oxygen during the day. 2. Respiratory acidosis with acute exacerbation, now stabilized. 3. Chronic nicotine addiction in a chronic smoker.. 4. Persistent hypoxemia and hypercapnia secondary to #1 with acute exacerbation, She continues to need BiPAP at night and high flow oxygen during the day. 5. Electrolyte imbalance that needs replacement with potassium of 2.6 today and magnesium of 1.5. 6. History of hypothyroidism on supplementation. 7. Hypertension with some hypertensive urgency on admission that has somewhat stabilized. 8. History of previous transient ischemic attacks with no reported residual effects. PLAN: We will continue present supportive care. Will continue with the high flow oxygen during the day and BiPAP at night. Hopefully we can titrate her off to where she is on regular oxygen during the day and maybe C-PAP at night. She will need a sleep study at some point. She will also need home oxygen and I have ordered oxygen qualification study per respiratory. She has also agreed to have home health on discharge, she had picked [facility]. I think it would be beneficial to help her, she may need to be transitioned to a rehabilitation facility or to Swing Bed for strengthening and conditioning when she is ready for discharge as she is extremely weak. I have replaced her magnesium as well as her potassium, changed her primary IV fluid, discontinued her IV Ativan and added p.o. Xanax. I will obtain lab and chest x-ray in the morning and physical therapy has also been consulted. We will continue to monitor her closely and follow as needed. Dr. Nelson is the collaborating physician available for consultation. DANO
[2018-09-23] MEDS ORDERED: SODIUM CHLORIDE 0.9% 250ML 250 ML ONE (14:33)
[2018-09-23] MEDS ORDERED: AZITHROMYCIN IV 500 MG VIAL IVPB ONE (14:34)
[2018-09-23] MEDS: AZITHROMYCIN IV 500 MG in SODIUM CHLORIDE 0.9% 250ML 250 ML IVPB SCH (16:34)
[2018-09-23] MEDS: ENOXAPARIN SODIUM 40 MG/0.4 ML SYG SUBCU SCH (20:46)
[2018-09-23] MEDS: ATORVASTATIN 20 MG TAB PO SCH (20:46)
[2018-09-24] MEDS: PANTOPRAZOLE SODIUM IV 40 MG VIAL IV SCH (06:30)
[2018-09-24] MEDS: LEVOTHYROXINE SODIUM 0.088 MG TAB PO SCH (06:30)
--- NOTE | 2018-09-24 07:00 | RAD ---
EXAM: AP CHEST RADIOGRAPH CLINICAL INDICATION: Shortness of breath. Pneumonia. COMPARISON: Compared to the chest radiograph September 22, 2018 at 0722 hours. FINDINGS: Cardiac size is normal. Suspect COPD with biapical emphysematous damage. Superimposed right basilar consolidation suspicious for pneumonia. The hyperexpanded lungs remain otherwise clear. IMPRESSION: Suspect right basilar pneumonia. Electronically signed by: Tres Toledo MD 09/24/2018 6:58 AM [facility]
[2018-09-24] MEDS ORDERED: cefTRIAXone SODIUM 1 GM VIAL ONE (07:26)
[2018-09-24] MEDS ORDERED: SODIUM CHL 0.9% 50ML MIN-BAG+ 50 ML IVPB ONE (07:26)
[2018-09-24] MEDS: guaiFENesin ER TAB 600 MG TAB PO SCH ×2 (08:46→21:12)
[2018-09-24] MEDS: CALCIUM CARBONATE-VITAMIN D 500 MG TAB PO SCH ×3 (08:46→21:12)
[2018-09-24] MEDS: ASPIRIN TABLET 325 MG TAB PO SCH (08:46)
[2018-09-24] MEDS: NICOTINE PATCH 14 MG TD SCH (08:47)
[2018-09-24] MEDS: MONTELUKAST 10 MG TAB PO SCH (08:47)
[2018-09-24] MEDS: cefTRIAXone SODIUM 1 GM in SODIUM CHL 0.9% 50ML MIN-BAG+ 50 ML IVPB SCH (08:47)
[2018-09-24] MEDS: NIFEDIPINE 60 MG PO SCH (08:48)
[2018-09-24] MEDS: BENZOCAINE-MENTH LOZ (CEPACOL) 1 EA LOZ MT PRN ×3 (08:48→21:41)
[2018-09-24] MEDS: BUDESONIDE NEBS 0.5 MG/2 ML VIAL NEB SCH ×2 (08:53→19:55)
[2018-09-24] MEDS: IPRATROPIUM/ALBUTEROL 3 ML VIAL NEB SCH ×4 (08:53→19:55)
[2018-09-24] MEDS ORDERED: SODIUM CHLORIDE 0.9% 250ML 250 ML ONE (10:14)
[2018-09-24] MEDS ORDERED: AZITHROMYCIN IV 500 MG VIAL IVPB ONE (10:14)
[2018-09-24] MEDS: ACETAMINOPHEN 325 MG TAB PO PRN ×2 (15:00→23:52)
[2018-09-24] MEDS: AZITHROMYCIN IV 500 MG in SODIUM CHLORIDE 0.9% 250ML 250 ML IVPB SCH (16:22)
[2018-09-24] MEDS ORDERED: POTASSIUM CHLORIDE 20 MEQ TAB PO ONE (17:07)
[2018-09-24] MEDS: ENOXAPARIN SODIUM 40 MG/0.4 ML SYG SUBCU SCH (21:12)
[2018-09-24] MEDS: ATORVASTATIN 20 MG TAB PO SCH (21:12)
--- NOTE | 2018-09-24 21:45 | PN ---
DATE: 09/24/18 SUPERVISING PHYSICIAN: Prem Maharaj M.D. SUBJECTIVE: The patient is sitting up in the chair for the first time since admission. She said it was quite difficult to get from her bed to the chair in her room but she feels much better since she is sitting up. She did use BiPAP overnight but has been on high flow oxygen most of the day. She has no complaints of chest pain, nausea, vomiting or diarrhea. We discussed that she would need home health after discharge and she is going to her granddaughter's house upon discharge so she can have some help and will use [facility]. I have also let her know that we have initiated home oxygen orders to the [facility] and she would be set up with oxygen at home. OBJECTIVE: VITAL SIGNS: Temperature 98, heart rate 85, blood pressure 130/69, respiratory rate 20, O2 sat has been as low as 89% with 3 liters high flow. It usually runs around 91 to 92% at rest. RESPIRATORY: Diminished breath sounds throughout. There are a few expiratory wheezes in the left upper lung area. She does get tachypneic at times, especially with any exertion. She continues to speak in short phrases due to her dyspnea. CARDIAC: Regular rate and rhythm. GASTROINTESTINAL: Abdomen is soft, nondistended, non-tender. Bowel sounds are positive. EXTREMITIES: No clubbing, cyanosis or edema. NEUROLOGIC: She is awake, alert and oriented times three. LABORATORY: WBCs are 13,000 with hemoglobin 11.8, hematocrit 35.5. She does have a left shift on her differential. Sodium 139, potassium 3.3, chloride 99, carbon dioxide 34, calcium 7.7, magnesium 1.8. Chest x-ray shows suspect right basilar pneumonia. All other labs and films have been reviewed via the EMR. ASSESSMENT: 1. Acute exacerbation of chronic obstructive pulmonary disease initially with left lower lobe pneumonia now questionable right lower lobe pneumonia most likely community acquired requiring continued aggressive management with BiPAP at night and high flow oxygen during the day. 2. Respiratory acidosis with acute exacerbation, now stabilized. 3. Chronic nicotine addiction in a chronic smoker.. 4. Persistent hypoxemia and hypercapnia secondary to #1 with acute exacerbation, She continues to need BiPAP at night and high flow oxygen during the day. 5. Electrolyte imbalance that needs replacement. Her magnesium is normal today at 1.8. Potassium still remains slightly low at 3.3. 6. History of hypothyroidism on supplementation. 7. Hypertension with some hypertensive urgency on admission that has somewhat stabilized. 8. History of previous transient ischemic attacks with no reported residual effects. PLAN: We will continue present supportive care. We will continue to try to titrate her off high flow oxygen and BiPAP to regular oxygen. She will need a sleep study at some point. Home oxygen has been ordered and hopefully it can be set up prior to her discharge. Will also need to call [facility] that she will be an admission after discharge. I am not quite sure if she will be able to be discharged from here. She may need Swing Bed for strengthening and conditioning due to her prolonged illness and oxygen requirements, but we will reevaluate that in the next day or so. I will repeat her metabolic panel in the morning after we have given her some potassium replacement today. She is progressing well clinically. We will continue to monitor her closely and follow as needed. Dr. Maharaj is the collaborating physician available for consultation. #[id number] [facility]
[2018-09-25] MEDS: PANTOPRAZOLE SODIUM IV 40 MG VIAL IV SCH (06:20)
[2018-09-25] MEDS: LEVOTHYROXINE SODIUM 0.088 MG TAB PO SCH (06:21)
[2018-09-25] MEDS ORDERED: SODIUM CHL 0.9% 50ML MIN-BAG+ 50 ML IVPB ONE (07:41)
[2018-09-25] MEDS ORDERED: cefTRIAXone SODIUM 1 GM VIAL ONE (07:42)
[2018-09-25] MEDS: guaiFENesin ER TAB 600 MG TAB PO SCH ×2 (08:00→20:38)
[2018-09-25] MEDS: NICOTINE PATCH 14 MG TD SCH (08:00)
[2018-09-25] MEDS: cefTRIAXone SODIUM 1 GM in SODIUM CHL 0.9% 50ML MIN-BAG+ 50 ML IVPB SCH (08:00)
[2018-09-25] MEDS: ASPIRIN TABLET 325 MG TAB PO SCH (08:00)
[2018-09-25] MEDS: MONTELUKAST 10 MG TAB PO SCH (08:00)
[2018-09-25] MEDS: NYSTATIN SUSPENSION 5 ML UD MT SCH ×4 (08:01→20:38)
[2018-09-25] MEDS: NIFEDIPINE 60 MG PO SCH (08:01)
[2018-09-25] MEDS: CALCIUM CARBONATE-VITAMIN D 500 MG TAB PO SCH ×3 (08:06→20:37)
[2018-09-25] MEDS: IPRATROPIUM/ALBUTEROL 3 ML VIAL NEB SCH ×4 (08:20→20:05)
[2018-09-25] MEDS: BUDESONIDE NEBS 0.5 MG/2 ML VIAL NEB SCH ×2 (10:27→20:05)
[2018-09-25] MEDS: ACETAMINOPHEN 325 MG TAB PO PRN ×2 (11:50→20:40)
[2018-09-25] MEDS ORDERED: AZITHROMYCIN IV 500 MG VIAL IVPB ONE (17:19)
[2018-09-25] MEDS ORDERED: SODIUM CHLORIDE 0.9% 250ML 250 ML ONE (17:19)
[2018-09-25] MEDS ORDERED: MAGNESIUM SULFATE PREMIX 2GM 2 GM in PREMIX BAG 1 BAG IVPB ONE (18:01)
[2018-09-25] MEDS: AZITHROMYCIN IV 500 MG in SODIUM CHLORIDE 0.9% 250ML 250 ML IVPB SCH (18:21)
[2018-09-25] MEDS ORDERED: MAGNESIUM SULFATE PREMIX 2GM 50 ML IVPB ONE (18:46)
[2018-09-25] MEDS: ATORVASTATIN 20 MG TAB PO SCH (20:37)
[2018-09-25] MEDS: ENOXAPARIN SODIUM 40 MG/0.4 ML SYG SUBCU SCH (20:38)
[2018-09-25] MEDS: IV SET AND CAP CHANGE INJ INJ SCH (20:45)
--- NOTE | 2018-09-25 21:53 | PN ---
DATE: 09/25/18 SUPERVISING PHYSICIAN: Prem Maharaj M.D. SUBJECTIVE: The patient is lying in bed. She continues with shortness of breath and weakness, but is much improved. It is reported by nursing that she did not require BiPAP overnight but she continues to need high flow oxygen. She has denied any chest pain, nausea, vomiting, diarrhea. She continues to feel better each day but is very weak and is working with Physical Therapy. OBJECTIVE: VITAL SIGNS: Temperature 98.5, heart rate 91, blood pressure 133/61, respiratory rate 20 but has gotten as high as 24. O2 sat runs from 90 to 95% on 3.5 liters of high flow oxygen. RESPIRATORY: Diminished breath sounds throughout. There is no wheezing or rhonchi noted. She does get tachypneic at times. She continues to speak in short phrases due to the dyspnea. CARDIAC: Regular rate and rhythm. GASTROINTESTINAL: Abdomen is soft, nondistended, non- tender. Bowel sounds are positive. NEUROLOGIC: She is awake, alert and oriented times three. LABORATORY: WBCs are down to 13,600 with hemoglobin 11.5 and hematocrit 34.7. She continues with a left shift on differential. Electrolytes are basically within normal limits but her magnesium is low at 1.5. Calcium is also low at 7.3. Preliminary blood cultures show no growth after 5 days. All other labs and films have been reviewed via the EMR. ASSESSMENT: 1. Acute exacerbation of chronic obstructive pulmonary disease initially with left lower lobe pneumonia now questionable right lower lobe pneumonia most likely community acquired requiring continued aggressive management with BiPAP at night and high flow oxygen during the day. 2. Respiratory acidosis with acute exacerbation, now stabilized. 3. Chronic nicotine addiction in a chronic smoker.. 4. Persistent hypoxemia and hypercapnia secondary to #1 with acute exacerbation, She continues to need BiPAP at night and high flow oxygen during the day. 5. Electrolyte imbalance that again needs replacement. Her magnesium is 1.5 today. Potassium is 3.6. 6. History of hypothyroidism on supplementation. 7. Hypertension with some hypertensive urgency on admission that has somewhat stabilized. 8. History of previous transient ischemic attacks with no reported residual effects. PLAN: We will continue present supportive care. Hopefully tomorrow we can change her to 2 to 3 liters nasal cannula. She will continue to work with Physical Therapy for strengthening and conditioning. We may need to do Swing Bed due to her extended hospitalization as well as her high oxygen demand. She has agreed to [facility] and we have initiated O2 for her home. I will give her 2 grams of magnesium and we will recheck her lab in the morning as well as do another x-ray. We will continue to monitor closely and follow as needed. #[id number] [facility]TDD
[2018-09-26] MEDS: PANTOPRAZOLE SODIUM TAB 40 MG PO SCH (06:05)
[2018-09-26] MEDS: LEVOTHYROXINE SODIUM 0.088 MG TAB PO SCH (06:05)
--- NOTE | 2018-09-26 06:58 | RAD ---
CHEST 09/26/2018 CLINICAL HISTORY: Pneumonia COMPARISON: Chest 09/24/2018 TECHNIQUE: AP portable upright Chest. FINDINGS: Very mild interstitial and airspace opacities within the right lower lobe have slightly decreased. There is discoid atelectasis left lung base. There is a small left pleural effusion. Lungs are hyperinflated. Left mid lung atelectasis noted. Heart is normal in size. Mild aortic atherosclerosis. No pneumothorax. Unremarkable soft tissues. IMPRESSION: 1. Persistent but improving right lower lobe infiltrates/atelectasis. 2. Left lower lobe discoid atelectasis. Small left pleural effusion. 3. COPD. Electronically signed by: Ashley De La Cruz DO 09/26/2018 6:57 AM [facility]
[2018-09-26] MEDS ORDERED: cefTRIAXone SODIUM 1 GM VIAL ONE (07:32)
[2018-09-26] MEDS ORDERED: SODIUM CHL 0.9% 50ML MIN-BAG+ 50 ML IVPB ONE (07:32)
[2018-09-26] MEDS: BUDESONIDE NEBS 0.5 MG/2 ML VIAL NEB SCH ×2 (08:02→19:49)
[2018-09-26] MEDS: IPRATROPIUM/ALBUTEROL 3 ML VIAL NEB SCH ×4 (08:02→19:49)
[2018-09-26] MEDS: NICOTINE PATCH 14 MG TD SCH (08:28)
[2018-09-26] MEDS: MONTELUKAST 10 MG TAB PO SCH (08:28)
[2018-09-26] MEDS: NYSTATIN SUSPENSION 5 ML UD MT SCH ×4 (08:28→19:47)
[2018-09-26] MEDS: guaiFENesin ER TAB 600 MG TAB PO SCH ×2 (08:28→19:48)
[2018-09-26] MEDS: ASPIRIN TABLET 325 MG TAB PO SCH (08:28)
[2018-09-26] MEDS: NIFEDIPINE 60 MG PO SCH (08:29)
[2018-09-26] MEDS: cefTRIAXone SODIUM 1 GM in SODIUM CHL 0.9% 50ML MIN-BAG+ 50 ML IVPB SCH (08:29)
[2018-09-26] MEDS: CALCIUM CARBONATE-VITAMIN D 500 MG TAB PO SCH ×3 (08:35→19:47)
[2018-09-26] MEDS: HYDROcodone 5MG/APAP 325MG 1 EA TAB PO PRN ×2 (09:31→17:39)
--- NOTE | 2018-09-26 17:03 | PN ---
DATE: 09/26/18 SUPERVISING PHYSICIAN: Prem Maharaj M.D. SUBJECTIVE: The patient is sitting in her bed. She is playing a game on her computer pad. She has not needed BiPAP overnight. She continues on high flow. She reported that she had walked to the doorway in her room today with Physical Therapy but she continued to get very short of breath. We discussed that her discharge would be dependent upon whether she could walk some in the hallways. She is planning to go to her niece's house after discharge. Her niece lives here in [place]. OBJECTIVE: VITAL SIGNS: Temperature 97.5, heart rate 81, blood pressure 154/66, respiratory rate 91% on high flow. It was reported that she did drop into the mid to upper 80s with ambulation in her room. RESPIRATORY: Diminished breath sounds throughout with a few scattered rhonchi. No wheezing. CARDIAC: Regular rate and rhythm. GASTROINTESTINAL: Abdomen was soft, nondistended, non-tender. Bowel sounds are positive. NEUROLOGIC: She is awake, alert and oriented times three. LABORATORY: Electrolytes are basically within normal limits with the exception of her calcium is slightly low at 7.6. WBCs have improved slightly to 11,600 with hemoglobin 11.1, hematocrit 33.4. She does have a left shift on differential. Blood cultures show no growth after 5 days. Chest x-ray shows: 1) Persistent but improving right lower lobe infiltrate/atelectasis. 2) Left lower lobe discoid atelectasis and small left pleural effusion. 3) Chronic obstructive pulmonary disease. All other labs and films have been reviewed via the EMR. ASSESSMENT: 1. Acute exacerbation of chronic obstructive pulmonary disease initially with left lower lobe pneumonia now questionable right lower lobe pneumonia most likely community acquired requiring continued aggressive management with BiPAP at night and high flow oxygen during the day. 2. Respiratory acidosis with acute exacerbation, now stabilized. 3. Chronic nicotine addiction in a chronic smoker. 4. Persistent hypoxemia and hypercapnia secondary to #1 with acute exacerbation, She continues to need BiPAP at night and high flow oxygen during the day. 5. Electrolyte imbalance that has needed replacement. Magnesium today is 1.9 and potassium is 3.6. 6. History of hypothyroidism on supplementation. 7. Hypertension with some hypertensive urgency on admission that has somewhat stabilized. 8. History of previous transient ischemic attacks with no reported residual effects. PLAN: We will continue present supportive care. She continues to have her Tran catheter. Due to her shortness of breath and increased oxygen requirements, we have not attempted to discontinue it as yet. Tomorrow morning we will begin bladder training and will try to discontinue her Tran in the morning. I have ordered a CBC and hopefully it will continue to improve. Will also titrated down her oxygen to regular tubing with regular oxygen flow. She will continue to work with Physical Therapy for strengthening and conditioning. Her oxygen for home has been ordered, including a concentrator and portable oxygen, and that should be ready from [employer] when she is discharged. Hopefully discharge will be in the next 2 to 3 days as she titrates down her oxygen and her strength is somewhat stronger. She may need physical therapy for strengthening and conditioning later as a Swing Bed. We will monitor over the weekend and see how she improves clinically. Will follow as needed and treat appropriately. #[id number] [facility]
[2018-09-26] MEDS ORDERED: SODIUM CHLORIDE 0.9% 250ML 250 ML ONE (17:50)
[2018-09-26] MEDS ORDERED: AZITHROMYCIN IV 500 MG VIAL IVPB ONE (17:51)
[2018-09-26] MEDS: AZITHROMYCIN IV 500 MG in SODIUM CHLORIDE 0.9% 250ML 250 ML IVPB SCH (17:55)
[2018-09-26] MEDS: ENOXAPARIN SODIUM 40 MG/0.4 ML SYG SUBCU SCH (19:48)
[2018-09-26] MEDS: ATORVASTATIN 20 MG TAB PO SCH (19:48)
[2018-09-27] MEDS: LEVOTHYROXINE SODIUM 0.088 MG TAB PO SCH (06:24)
[2018-09-27] MEDS: PANTOPRAZOLE SODIUM TAB 40 MG PO SCH (06:24)
[2018-09-27] MEDS ORDERED: SODIUM CHL 0.9% 50ML MIN-BAG+ 50 ML IVPB ONE (07:13)
[2018-09-27] MEDS ORDERED: cefTRIAXone SODIUM 1 GM VIAL ONE (07:14)
[2018-09-27] MEDS: BUDESONIDE NEBS 0.5 MG/2 ML VIAL NEB SCH (07:56)
[2018-09-27] MEDS: IPRATROPIUM/ALBUTEROL 3 ML VIAL NEB SCH ×4 (07:56→20:20)
[2018-09-27] MEDS: cefTRIAXone SODIUM 1 GM in SODIUM CHL 0.9% 50ML MIN-BAG+ 50 ML IVPB SCH (08:44)
[2018-09-27] MEDS: guaiFENesin ER TAB 600 MG TAB PO SCH ×2 (08:45→20:21)
[2018-09-27] MEDS: NYSTATIN SUSPENSION 5 ML UD MT SCH ×4 (08:45→20:21)
[2018-09-27] MEDS: NICOTINE PATCH 14 MG TD SCH (08:45)
[2018-09-27] MEDS: MONTELUKAST 10 MG TAB PO SCH (08:45)
[2018-09-27] MEDS: CALCIUM CARBONATE-VITAMIN D 500 MG TAB PO SCH ×3 (08:45→20:21)
[2018-09-27] MEDS: ASPIRIN TABLET 325 MG TAB PO SCH (08:45)
[2018-09-27] MEDS: NIFEDIPINE 60 MG PO SCH (08:46)
[2018-09-27] MEDS: predniSONE 20 MG TAB PO SCH (11:51)
--- NOTE | 2018-09-27 15:45 | PN ---
DATE: 09/27/18 SUPERVISING PHYSICIAN: Prem Maharaj M.D. SUBJECTIVE: The patient is resting in bed. She has continued to be O2 dependent but has not been using BiPAP now for 48 hours. I did discuss with her hopefully being able to discharge tomorrow and anticipate that she will be able to ambulate some today. Should she not show any significant desaturation events will discharge home. Will need to transition her to a p.o. steroid anticipating discharge, again in the morning. At discharge, she is planning to go home with her niece. Again, continue to discuss smoking cessation. OBJECTIVE: VITAL SIGNS: Temperature 97.9, pulse 78, blood pressure 134/69, respirations 20, satting 94% on nasal cannula at rest. I's and O's show a negative balance of 1019 with 1106 in, 2125 out. Weight 55.6 kg. GENERAL: The patient appears to be comfortable in no acute distress. She is wearing oxygen. CHEST: Lung sounds continue to be diminished throughout, but no obvious wheezing noted. HEART: Regular rate and rhythm. ABDOMEN: Soft, non-tender. Positive bowel sounds. NEUROLOGIC: She is alert and oriented times three. LABORATORY: White count now has normalized to 10,300, hemoglobin 11.2, hematocrit 33.6, platelet count 179,000. Differential shows to be continued left shift. Chemistries show normal electrolytes yesterday. Chest x-ray yesterday was showing persistent but improving right lower lobe infiltrates and left lobe discoid atelectasis with a small left pleural effusion and COPD changes. ASSESSMENT: 1. Acute exacerbation of chronic obstructive pulmonary disease with left lower lobe pneumonia and possible right lower lobe probably community acquired requiring aggressive management and BiPAP with very slow clinical improvement nearing discharge status. 2. Respiratory acidosis on admission secondary to acute exacerbation of her of her chronic obstructive pulmonary disease, now stabilized. 3. Chronic nicotine addiction in a chronic smoker. 4. Persistent hypoxemia and hypercapnia due to #1 exacerbation requiring persistent O2. 5. Electrolyte imbalance back to baseline status after replacement. 6. History of hypothyroidism on supplementation. 7. Hypertension with initial hypertensive urgency on admission showing to be stable. 8. History of previous transient ischemic attacks but no reported residual effects. PLAN: Will get the catheter out today and encourage her to ambulate. We are anticipating discharging tomorrow. It is a given she is going to continue to be short of breath but if she can at least ambulate to the bathroom and back to bed and chair, and slowly demonstrate that she can increase endurance, certainly she can be discharged. I discussed that she will need to go home on continued steroids as she probably will not be able to have coverage from her insurance for Pulmicort, and she sees Dr. Heck at which time he can decide on a termite treater maintenance inhaled steroid. Until discharge will continue with p.o. prednisone and given that she is on day 8, will plan to continue antibiotics for another additional 24 hours and at discharge hopefully not have to continue antibiotic coverage. She does have arrangements for a home oxygen concentrator as well as portable. [facility] can be notified once she is ready to be discharged. Again hopefully be able to discharge tomorrow if she is demonstrating some endurance and able to maintain saturations with at least nasal cannula both at rest and exertion. Until then will continue to monitor and treat as needed. #[id number] [facility]
[2018-09-27] MEDS: ACETAMINOPHEN 325 MG TAB PO PRN (16:18)
[2018-09-27] MEDS: ENOXAPARIN SODIUM 40 MG/0.4 ML SYG SUBCU SCH (20:20)
[2018-09-27] MEDS: ATORVASTATIN 20 MG TAB PO SCH (20:21)
[2018-09-28 02:10] VITALS: TEMP 98.1
[2018-09-28] MEDS: PANTOPRAZOLE SODIUM TAB 40 MG PO SCH (06:11)
[2018-09-28] MEDS: LEVOTHYROXINE SODIUM 0.088 MG TAB PO SCH (06:11)
[2018-09-28] MEDS: IPRATROPIUM/ALBUTEROL 3 ML VIAL NEB SCH (07:42)
[2018-09-28] MEDS ORDERED: SODIUM CHL 0.9% 50ML MIN-BAG+ 50 ML IVPB ONE (08:01)
[2018-09-28] MEDS ORDERED: cefTRIAXone SODIUM 1 GM VIAL ONE (08:02)
[2018-09-28] MEDS: HYDROcodone 5MG/APAP 325MG 1 EA TAB PO PRN (08:05)
[2018-09-28] MEDS: NICOTINE PATCH 14 MG TD SCH (09:02)
[2018-09-28] MEDS: predniSONE 20 MG TAB PO SCH (09:02)
[2018-09-28] MEDS: ASPIRIN TABLET 325 MG TAB PO SCH (09:02)
[2018-09-28] MEDS: guaiFENesin ER TAB 600 MG TAB PO SCH (09:02)
[2018-09-28] MEDS: CALCIUM CARBONATE-VITAMIN D 500 MG TAB PO SCH (09:03)
[2018-09-28] MEDS: cefTRIAXone SODIUM 1 GM in SODIUM CHL 0.9% 50ML MIN-BAG+ 50 ML IVPB SCH (09:03)
[2018-09-28] MEDS: MONTELUKAST 10 MG TAB PO SCH (09:03)
[2018-09-28] MEDS: NIFEDIPINE 60 MG PO SCH (09:04)
[2018-09-28] MEDS: NYSTATIN SUSPENSION 5 ML UD MT SCH (09:05)
[2018-09-28] MEDS ORDERED: CALCIUM CARBONATE-VITAMIN D 500 MG TAB ONE (09:41)
[2018-09-28 10:10] VITALS: BP 130/60; O2SAT 96
--- NOTE | 2018-10-06 08:17 | DS ---
SUPERVISING PHYSICIAN: Prem Maharaj MD ADMISSION DIAGNOSIS: 1. Acute exacerbation of chronic obstructive pulmonary disease with left lower lobe pneumonia. 2. Respiratory acidosis secondary to moderate acute respiratory distress requiring continuous nebs and high flow oxygen. 3. Chronic nicotine addiction in a chronic smoker. 4. Febrile illness probably due to developing pneumonia. 5. Hypoxemia, hypoxia as noted on admission requiring aggressive management. 6. Electrolyte imbalance to include hyponatremia probably due to underlying developing pneumonia with low magnesium. 8. Elevated BNP without any formal history of congestive heart failure probably due to ongoing respiratory failure. 9. History of hypothyroidism on supplementation. 10. History of hypertension with hypertensive urgency on admission due to acute respiratory distress. 11. History of previous transient ischemic attacks. DISCHARGE DIAGNOSIS: 1. Acute exacerbation of chronic obstructive pulmonary disease with left lower lobe pneumonia and right lower lobe, community acquired. 2. Respiratory acidosis secondary to acute exacerbation of chronic obstructive pulmonary disease, now resolved. 3. Chronic nicotine addiction in a smoker. 4. Persistent hypoxemia and hypercapnia secondary to #1 exacerbation, requiring home oxygen. 5. Electrolyte imbalance, returning to baseline status after therapy. 6. History of hypothyroidism on supplementation. 7. Hypertension with initial hypertensive urgency on admission, now stabilized. 8. History of previous transient ischemic attacks but no reported residual effects. REASON FOR HOSPITALIZATION: Ms. Henley is a 73 year-old female patient who reported to the Emergency Room today complaining of increasing cough and worsening shortness of breath. She notes that in the earlier part of the week she started having some shortness of breath and feeling bad but this progressively worsened over the last 3 days and today it was much worse where she was even short of breath just at rest. On presentation to the Emergency Room, the was noted to be severely hypoxic and in mild distress with initial SP02 showing to be in the 50s on room air with labored respirations at 44. She was noted to be febrile at 102.1, blood pressure showing hypertension at 179/114 with heart rate of 97. She was given continuous DuoNeb treatments x2 and was able to increase to maintain 02 saturation of 90% with a Ventimask of 50%. Her laboratory studies showed she had a normal white count of 10,600 with a left shift, hemoglobin 13.6, hematocrit 40.6, platelet count 258,000. Blood gasses showed a respiratory acidosis with a pH of 7.3, PO2 of 78, PCO2 of 59, bicarb 27.9 with 02 saturation on Ventimask at 50% showing it to be 93%. Initial chemistries showed a low sodium of 132, BUN 27, creatinine1.0, glucose 158, lactic acid normal at 1.2, calcium 9.3, magnesium low at 1.6. Liver functions showed to be within normal limits. BNP elevated at 629 with troponin of 0.04. The patient was not complaining of any chest pain during the entire hospitalization in the Emergency Room prior to admission. She was noted to be a chronic smoker up to a pack a day since age of 20. Her chest x-ray per radiology interpretation showed interstitial infiltrates being more prominent on the left which is concerning for pneumonia. The patient was kept in the Emergency Room and aggressively managed until she was noted to be stable but guarded. After further discussion with Dr. Claudio, Emergency Room physician, felt the patient was stable enough to be admitted to the medical/surgical floor here for ongoing treatment of left lower lobe pneumonia and hypoxemia with some mild respiratory distress but no failure. She was able to maintain 02 saturations in the 90s on a continuous nebulizer with no obvious distress. She is now going to be admitted to the medical/surgical floor for further evaluation and treatment. LABORATORY: White count on admission initially was 10,600 and did go up to a maximum of 15,700 as she was on quite a bit of steroids. At discharge, white count had returned to baseline and was still showing differential with left shift with hemoglobin being stable now at 11.2 and hematocrit 32.6, platelet count 179,000. Blood gas analysis on admission showed pH 7.3, pCO2 59, pO2 78, saturation 93% on a BiPAP. She had an exacerbation on 09/20/18 of respiratory distress, respiratory failure with a pH 7.170 secondary to respiratory acidosis with pCO2 77, pO2 78. She was satting 93% again on BiPAP. On 09/22/18, repeat ABG showed pH returned to close to normal at 7.34. She was showing chronic CO2 retention with pCO2 of 60, which was improved from 09/20/18 and a pO2 of 69 on nasal cannula at rest with O2 saturation 92%. Chemistries initially on admission showed sodium 132, potassium 3.8, BUN 27, creatinine 1.0, lactic acid 1.2. Liver functions were within normal limits. BNP was elevated at 629. Troponin was 0.04. Magnesium did go down as low as 1.5 on 09/26/18. On discharge after therapy, it had gone up to baseline levels of 1.9. BUN at discharge was 11, creatinine 0.6. On 09/26/18, all electrolytes were within normal limits. Urinalysis initially on admission showed 100 protein, 15 ketones, small amount of blood, small amount of bilirubin. Microscopic was within normal limits. Catheterization urine on 09/20/18 showed 100 protein with trace intact blood. Microscopic showed 3 to 5 RBCs, 1 to 3 WBCs, no bacteria. EKG on admission showed normal sinus rhythm. RADIOLOGY: Radiographic studies included chest x-ray initially on admission that showed interstitial infiltrates observed more pronounced on the left, which may represent pneumonia. On 09/20/18 when she had an exacerbation and respiratory distress and failure, chest x-ray at that time showed increased alveolar opacities in the left lung base. Her last chest x-ray on 09/26/18, single-view, per radiologic interpretation showed persistent, but improving right lower lobe infiltrate, atelectasis and left lower lobe with atelectasis with small left pleural effusion and chronic obstructive pulmonary disease changes. HOSPITAL COURSE: Ms. Henley was admitted on 09/19/18 after she had a severe exacerbation of chronic obstructive pulmonary disease secondary to pneumonia. She was started on antibiotic coverage initially with Rocephin and azithromycin and required very aggressive management with IV corticosteroid that were slowly tapered as she was very resistant to tapering and showed persistent respiratory compromise at times. She was continued on a course of antibiotics and also at one point started on Pulmicort which she responded well to. She received very aggressive pulmonary hygiene while in the hospital and did require BiPAP assistance after she had another exacerbation shortly after admission. She was able to wean off BiPAP and go to a nasal cannula at rest. Blood pressure on the day of discharge was stable with pulse 88, blood pressure 130/60. She was actually satting 96% on nasal cannula at rest on 3.5 liters. Temperature was 98.1. She did have a home O2 qualification ambulation study that showed at rest she was satting only 74% on room air. She did respond well to oxygen therapy, but again was showing very slow recovery with need for high-dose steroids. On the morning of discharge on 09/28/18, it was felt the patient had progressed well enough clinically to continue with outpatient management. PLAN: Ms. Henley was discharged on 09/28/18 with instructions to followup with Dr. Heck in 7 days after discharge or earlier if needed. She was to utilize oxygen which she had been set up with through [facility], both portable and at home. She was educated extensively and reinforced on the efforts to stop smoking. She was to take all her medications as directed and to return to the hospital should she have any concerning symptoms. She was to have diet at discharge of usual diet as tolerated. Activity was to increase as tolerated. Discharge care was to [facility]. All medications prior to hospitalization were continued and new prescriptions at discharge included: 1. Albuterol Ventolin inhaler 1 puff q.4h. as needed, no refills. 2. Proventil nebulizers q.4h. as needed, #30, no refills. 3. Albuterol q.4h. scheduled for at least 3 days, #30, no refills, to take as directed. 4. She was to continue the guaifenesin 1200 mg twice daily for at least 7 days. 5. Nicotine patch 14 mg transdermal patch daily, to continue with Dr. Heck. 6. 10-day taper prednisone 10 mg tablets. She was to take 40 for 3 days and taper down by 10 mg daily for 3 days until she was done with the 10-day taper. CONDITION ON DISCHARGE: Stable and improved. DISPOSITION: The patient was discharged to care of family. [facility][id number] [facility]
== END 2018-09-28 11:15 | disposition home health service (06) | DRG 190 ==
LOC: ER 13:26 → MS 15:42
PROVIDERS: ADMIT Nurse Practitioner Family; ATTEND Nurse Practitioner Family
DX: J44.1 Chronic obstructive pulmonary disease with (acute) exacerbation (principal); J18.9 Pneumonia, unspecified organism; E87.2 Acidosis; E87.1 Hypo-osmolality and hyponatremia; J44.0 Chronic obstructive pulmonary disease with (acute) lower respiratory infection; E89.0 Postprocedural hypothyroidism; I10 Essential (primary) hypertension; F17.210 Nicotine dependence, cigarettes, uncomplicated; E83.42 Hypomagnesemia; F41.9 Anxiety disorder, unspecified; Z86.73 Personal history of transient ischemic attack (TIA), and cerebral infarction without residual deficits; Z79.82 Long term (current) use of aspirin; Z88.5 Allergy status to narcotic agent

== ENCOUNTER → 2018-10-21 | Outpatient (CLI) | payer OTHER ==
--- NOTE | 2018-10-21 15:59 | RAD ---
EXAM DESCRIPTION: Knee,Left Complete CLINICAL HISTORY: 73 years Female, PAIN IN LT KNEE TECHNIQUE: 3 views of the left knee were performed. COMPARISON: None available. FINDINGS: The visualized bones appear well mineralized. There is a fracture of the patella with associated soft tissue swelling. Small suprapatellar joint effusion is noted. The soft tissues appear grossly unremarkable. IMPRESSION: Fracture of the patella with associated soft tissue swelling and small suprapatellar joint effusion. Electronically signed by: Jermaine Mai MD 10/21/2018 3:58 PM [facility] [[email or web address]]
== END ==
LOC: RAD 13:32
PROVIDERS: ATTEND General Practice
DX: S82.002A Unspecified fracture of left patella, initial encounter for closed fracture (principal)

== ENCOUNTER → 2018-11-03 | Outpatient (CLI) | payer OTHER ==
--- NOTE | 2018-11-03 11:46 | RAD ---
Single frontal view of radiograph pelvis Indication: LEFT HIP PAIN Comparison: None. Impression: Mild bilateral hip osteoarthritis with joint space narrowing and tiny osteophytes. No gross hip fracture identified. Evaluation for fracture is limited given the degree of osteopenia. If high clinical concern for acute fracture, correlation with MRI recommended given its greater sensitivity in the osteopenic patient. If the patient cannot tolerate MRI imaging or more urgent imaging is required, CT could be performed, however it is less sensitive in the osteopenic patient when compared to MRI. Osteopenia. If this is a new finding, DEXA scan recommended as well as evaluation for possible osteoporosis treatment. Electronically signed by: Eddy Caban MD 11/03/2018 11:43 AM [facility]
== END ==
LOC: RAD 09:07
PROVIDERS: ATTEND Orthopaedic Surgery
DX: M16.0 Bilateral primary osteoarthritis of hip (principal); M85.88 Other specified disorders of bone density and structure, other site; M25.552 Pain in left hip

== ENCOUNTER → 2019-06-12 | Outpatient (CLI) | payer OTHER ==
--- NOTE | 2019-06-15 11:08 | MAM ---
EXAM DESCRIPTION: 3D Screening BILATERAL : Digital Mammography. CLINICAL HISTORY: 74 years Female ANNUAL SCREENING . No complaints. No personal or family history of breast cancer. Menarche age 13. Childbirth. Postmenopausal 30+ years. No HRT. Lifetime risk of developing breast cancer (Tyrer-Cuzick model)(%): 3.6. COMPARISON: 2-D digital screening bilateral mammography 03/12/2012. No prior reports available. TECHNIQUE: Bilateral CC and MLO projection full-field images, digital tomosynthesis mammographic technique. Bilateral digital 2-D full-field MLO images. CAD not available for tomosynthesis or 2-D images. FINDINGS: The breast parenchymal density pattern is: Scattered areas of fibroglandular density. No skin thickening or nipple retraction. Bilateral solitary microcalcifications. Bilateral axillary lymph nodes. No new focal, stellate mass or density, focal asymmetry , and no suspicious microcalcifications bilaterally. Stable mammograms compared to prior study. Taking into account, differences in mammographic technique. IMPRESSION: Benign exam. BIRAD CATEGORY: 2 BENIGN FINDINGS. RECOMMENDATIONS: FOLLOW UP: Routine digital bilateral mammographic screening, one year interval from May 2019. Written communication explaining the IMPRESSION and follow-up, will be mailed to the patient and referring health care provider. According to the [employer], yearly mammograms are recommended starting at age 40 and continuing as long as a woman is in good health. Any breast change noted on a breast self-exam should be reported promptly to the patient's healthcare provider. Breast MRI is recommended for women with an approximately 20-25% or greater lifetime risk of breast cancer, including women with a strong family history of breast or ovarian cancer and women who have been treated for Hodgkin's disease. A negative mammographic report should not delay tissue diagnosis in patients with significant clinical history or physical findings. Extremely dense breast tissue limits the sensitivity of digital mammography. Electronically signed by: Navneet Ribeiro MD 06/15/2019 11:07 AM CDT
== END ==
LOC: MAMMO 11:36
PROVIDERS: ATTEND General Practice
DX: Z12.31 Encounter for screening mammogram for malignant neoplasm of breast (principal)

== ENCOUNTER 2019-12-07 | Day surgery (SDC) | payer OTHER, MEDICAID | END 2019-12-07 07:22 | disposition home or self-care (01) | DX: H26.491 Other secondary cataract, right eye (principal); I10 Essential (primary) hypertension; Z79.82 Long term (current) use of aspirin; Z79.899 Other long term (current) drug therapy ==